=== PATIENT | female | born 2005 | race Caucasian/White ===

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

== ENCOUNTER 2024-02-18 01:35 | Emergency (ER) | payer OTHER, SELFPAY ==
[2024-02-18 01:38] VITALS: BP 119/68
--- NOTE | 2024-02-18 02:04 | EDRN ---
a rash on Monday afternoon. Amoxicillin stopped. Seen by PCP and started on Prednisone 40 mg and Monday and this morning Monday and the rash increased. Pt has rash over entire body. Lungs clear.
[2024-02-18] MEDS: NSS 1000 IV (03:33)
[2024-02-18] MEDS: BENADRYL 25 MG IV ×2 (03:40→05:38)
[2024-02-18] MEDS: DECADRON 10 MG IV (03:41)
[2024-02-18] MEDS: PEPCID 20 MG IV (03:45)
[2024-02-18 04:00] VITALS: BP 119/69
[2024-02-18 04:25] VITALS: BMI 17.8
[2024-02-18] MEDS: ADRENALIN 0.3 MG IM (04:45)
--- NOTE | 2024-02-18 06:06 | ED.GENMED ---
History of Present Illness
General
Chief Complaint: Allergic Reaction
Source: patient and family (Mother and father at bedside)
Exam Limitations: none
Time Seen by Provider: 02/18/24 03:00
Nursing documentation reviewed up to this point in time: agreed with
History of Present Illness
History of Present Illness:
This is a 18-year-old female with no significant past medical history who underwent wisdom teeth extraction on February 12, she was placed on amoxicillin and developed a rash the following day, February 13. Amoxicillin was
discontinued with onset of rash on Monday and she was started on prednisone taper the following day, . She started at 40 mg daily for 2 days then 30 mg daily for 2 days excetra.
She has also been taking Benadryl 50 mg intermittently for generalized itch, red generalized rash. Despite prednisone and Benadryl she has had recurrent generalized erythematous rash and itching. She does note that she was feeling improved
yesterday with resolution of rash but has returned tonight. She has not had a fever nor chills. No cough no shortness of breath, no abdominal pain, no nausea or vomiting, no diarrhea.
She did suffer somewhat similar rash when she was prescribed amoxicillin with mono. At that time they thought rash was related to antibiotics with mononucleosis.
Last dose of Benadryl, 50 mg at 12:30 AM.
Past History
Past History
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
ED Past Surgical History: None
Patient has exhibited threatening behavior?: No
Social History
Tobacco: Non-smoker
Alcohol: None
Personal: Single
Living: with family
Employment: Student
Family History
Family History: Other (Noncontributory)
Phy Exam
Physical Exam
Physical Exam:
GENERAL: 18-year-old female appears her stated age, awake and alert, pleasant, mildly anxious but easily communicative and otherwise in no acute distress. Both parents are accompanying.
EYE: pupils equal and reactive. anicteric
NECK: Supple, nontender, no meningismus, no significant adenopathy.
ENT: posterior pharynx is clear, oral mucosa is moist. TM clear b/l, nares patent. No angioedema.
CARDIAC: Regular rate and rhythm. no murmur.
LUNGS: Clear breath sounds bilaterally, no acute respiratory distress, no wheezes/rales/rhonchi
ABDOMEN: Soft, nondistended, without focal tenderness, no r/g, no cvat. normoactive BS.
NEUROLOGICAL: Alert and oriented x3, no focal neuro deficits. Gait is olivera and steady.
SKIN: Warm and dry, moderate global erythema without urticaria nor soft tissue swelling nor excoriation, skin intact.
MUSCULOSKELETAL: No C/C/E. peripheral pulses are full and equal b/l. No palpable tenderness.
PSYCH: Normal and appropriate interaction.
Course
Orders/Labs/Results
Orders:
Orders
02/18/24 03:08
0.9% Sodium Chloride 1000 ml [Nss] 1,000 ml IV BOLUS
Dexamethasone Sod Phosphate [Decadron] 10 mg IV NOW STA
Diphenhydramine [Benadryl] 25 mg IV NOW STA
Famotidine [Pepcid] 20 mg IV NOW STA
02/18/24 04:31
EPINEPHrine PF [Adrenalin] 0.3 mg IM NOW STA
02/18/24 05:34
Diphenhydramine [Benadryl] 25 mg IV NOW STA
02/18/24 06:29
HydrOXYZINE [Atarax] 25 mg PO NOW STA
Vital Signs
Initial and Last Documented VS:
Initial Vital Signs
Temp Pulse Resp BP Pulse Ox
98.2 F 63 16 119/68 100
02/18/24 01:38 02/18/24 01:38 02/18/24 01:38 02/18/24 01:38 02/18/24 01:38
Last Documented Vital Signs
Temp Pulse Resp BP Pulse Ox
98.2 F 82 16 121/73 98
02/18/24 01:38 02/18/24 06:45 02/18/24 06:45 02/18/24 06:45 02/18/24 06:45
MDM/Problems Addressed
Differential Diagnosis Includes:
Patient presents with generalized erythematous itchy rash likely allergic reaction to amoxicillin.
No evidence of anaphylaxis nor anaphylactoid reaction.
Will give an IV dose of Benadryl, Pepcid, Decadron and consider an IM dose of epinephrine.
She is afebrile, no reported fever, no joint swelling nor evidence of inflammation, at this point no indication for laboratory studies.
*Pulse Oximetry
Patient hypoxic: no
*Critical Care Note
Total Time (30-74mins, 75-104mins- exclusive of procedures): Not Applicable
Update Note
Update Note:
Patient has had intermittent moderate improvement in global erythematous rash and itch but then seems to return. Mild improvement after IM epinephrine but then again returns.
She appears much more comfortable after IV Benadryl.
Both patient and mom are concerned that rash seems to worsen after she takes prednisone. She does seem to improve after antihistamine.
As such recommend she discontinue the prednisone, will continue antihistamine and recommend she initiated daily Zyrtec and will add a short course of Pepcid as well along with continue as needed Benadryl.
Will trial an oral dose of Atarax for itch.
ED Attending Note
-
Portions of this chart may have been created with voice recognition software.� Occasional wrong word or��sound alike� substitutions may have occurred due to the inherent limitations of voice recognition software.
Discharge Plan
Departure
Patient Disposition: Home (Routine Discharge)
Date of Disposition: 02/18/24
Time of Disposition: 07:02
Patient with high blood pressure during this ER visit?: No
Condition: Good
Discharge Problem:
Acute allergic reaction, Amoxicillin-induced allergic rash
Instructions: Penicillin allergy
Prescriptions:
New
famotidine [Pepcid] 20 mg tablet
20 mg PO BID Qty: 10 0RF
cetirizine [Zyrtec] 10 mg tablet
10 mg PO DAILY Qty: 7 0RF
hydroxyzine HCl 25 mg tablet
25 mg PO Q6H PRN (Reason: itching) Qty: 14 0RF
No Action
therapeutic multivitamin Tablet
1 tab PO DAILY
fexofenadine 180 mg Tablet
180 mg PO DAILY PRN (Reason: Allergies)
cholecalciferol (vitamin D3) 25 mcg (1,000 unit) Tablet
25 mcg PO DAILY
prednisone 50 mg tablet
50 mg PO DAILY Qty: 2 0RF
Referrals:
Lenore Rivera PA [Family Provider] - Call in 1-3 days for appt
Activity Restrictions/Additional Instructions:
Stop the prednisone.
Continue Benadryl 50 mg 4 times daily as needed for itch, along with this I have added hydroxyzine which you can take 4 times daily as needed for itch, restlessness.
I also recommend that you start a daily Zyrtec, once daily as well as adding a course of Pepcid, 20 mg twice daily.
Follow-up with your primary care physician this week for recheck.
Interventions
Interventions:
*Risk Screen - Suicide Last Done: 02/18/24 01:38
*General Assessment Last Done: 02/18/24 01:38
*Neglect/Abuse Screening Last Done: 02/18/24 01:38
ED- Fall Risk Assessment Last Done: 02/18/24 02:01
*ED COVID-19 Vaccine History Last Done: 02/18/24 01:38
ED- Cardiac Assessment Last Done: 02/18/24 02:01
ED- Pulmonary Assessment Last Done: 02/18/24 02:01
ED-Skin Assessment Last Done: 02/18/24 02:01
Discharge Date and Time
Print Language: PARAGUAYAN
[2024-02-18] MEDS: ATARAX 25 MG PO (06:41)
[2024-02-18 06:45] VITALS: BP 121/73
[2024-02-18 07:00] VITALS: BP 122/65
== END 2024-02-18 07:20 | disposition home or self-care (01) ==
LOC: EMR 01:35
PROVIDERS: EMERGENCY PHYSICIAN Emergency Medicine; FAMILY PHYSICIAN Physician Assistant
DX: L27.0 Generalized skin eruption due to drugs and medicaments taken internally (principal)
CPT/HCPCS: 99282; 96374; 96375; 96376; 96361